=== PATIENT | female | born 1990 | race Caucasian/White ===

== ENCOUNTER 2020-06-07 09:01 | Emergency (ER) | payer MEDICAID, SELFPAY ==
[2020-06-07 09:02] VITALS: BP 127/78; PULSE 69; RESP 18; TEMP 36.4; O2SAT 100; BMI 21.9
--- NOTE | 2020-06-07 09:20 | ED.VIS.GEN ---
History of Present Illness Chief Complaint: General Illness Narrative: Patient is a 30-year-old female who presents with about 1 week of sinusitis symptoms. She states she does get frequent sinusitis 4-5 times per year. She initially saw her primary care physician and was placed on antibiotics. She had no improvement. She was then seen at an urgent care and put on a second round of antibiotics as well as steroid. She also was having some expiratory wheezing and was given an inhaler. Today while going to work she felt like her chest was tight. She took her prednisone and actually now this is feeling better. She is concerned however because she does complains of sinus pressure and nasal discharge and drainage. She states she just does not seem to be getting get better. No fevers. No vomiting. Past Medical History - Allergies and Home Meds Allergies/Adverse Reactions: Allergies No Known Allergies Allergy (Verified 06/07/20 09:04) Past Medical History: None Review of Systems All systems negative except as indicated General: Denies: Fever Eyes: Denies: Visual changes - bilaterally ENT: Reports: Rhinorrhea, - - Sinus pressure Cardiovascular: Reports: Palpitations. Denies: Chest pain Respiratory: Reports: Cough, - - Chest congestion. Denies: Dyspnea Gastrointestinal: Denies: Vomiting, Diarrhea Musculoskeletal: Denies: Myalgias, Arthralgias Skin: Denies: Rash Hematologic: Denies: Easy bruising Allergy: Denies: Uticaria Physical Exam Vital Signs/Narrative: Vital Signs Temp Pulse Resp BP Pulse Ox 06/07/20 09:02 97.6 F L 69 18 127/78 H 100 Inital Vital Signs reviewed: Yes General: Well nourished Head: Normocephalic Eyes: EOMI ENT: Moist mucous membranes, - - Maxillary sinus tenderness on percussion Neck: Supple Cardiovascular: Regular rate, Regular rhythm Respiratory: No distress, CTA bilaterally Abdomen: Soft, Nontender Extremities: Nontender Skin: Normal color Neurological: Alert Psychological: Normal affect Diagnostic/Tx/Re-eval - Medical Decision Making Patient is already on antibiotics and steroids currently. She also already has an albuterol inhaler. I explained to her I have little else to offer in terms of pharmaceutical therapy. I did offer a referral to ENT. Patient otherwise advised to follow-up with her primary care physician. Patient discharged. ED Disposition - Plan for ED Patient: Disposition: Home or Assisted Living Diagnosis: Sinusitis Instructions: ED Sinusitis Antibiotic Treatment Referrals: Jarrod Rincon MD [STAFF PHYSICIAN] -
== END 2020-06-07 09:47 | disposition home or self-care (01) ==
LOC: ED 09:37
PROVIDERS: Emergency Provider Emergency Medicine
DX: J32.9 Chronic sinusitis, unspecified (principal)
CPT/HCPCS: 99282

== ENCOUNTER → 2020-06-09 | Outpatient (CLI) | payer MEDICAID, SELFPAY ==
[2020-06-07 09:02] VITALS: BMI 21.9
== END | disposition home or self-care (01) ==
PROVIDERS: Referring Provider Otolaryngology; Visit Provider Otolaryngology
DX: J01.20 Acute ethmoidal sinusitis, unspecified (principal)
CPT/HCPCS: 87070; 87186; 87205